=== PATIENT | female | born 1975 | race Caucasian/White ===

== ENCOUNTER 2017-01-23 19:06 | Emergency (ER) | payer OTHER ==
[~2017-01-23] VITALS: Ht 152.4 cm; Wt 99.5 kg
[~2017-01-23 19:06] MED LIST: HYD25 PO; IBUP-1542 PO
[2017-01-23 19:11] VITALS: Ht 152.4 cm; Wt 99.5 kg
[2017-01-23] MEDS ORDERED: ONDANSETRON 4 MG INJ IV STA (21:29)
[2017-01-23] MEDS ORDERED: HYDROmorphONE 1 MG/ML SYG IV STA (21:29)
[2017-01-23 22:14] LABS: POTASSIUM 3.3 mmol/L (3.5-5.1)
[2017-01-23 22:15] LABS: CALCIUM 9.4 mg/dl (8.4-10.2); CREATININE 0.78 mg/dl (0.44-1.00)
[2017-01-23 22:37] LABS: BASOPHIL # 0.1 10^3/ul (0.0-0.1); BASOPHILS % 0.4 % (0.0-2.0); EOSINOPHILS # 0.2 10^3/ul (0.0-0.5); EOSINOPHILS % 1.4 % (0.0-7.0); HEMATOCRIT 43.8 % (37.0-47.0); HEMOGLOBIN 14.8 g/dl (12.0-16.0); LYMPHOCYTES # 3.6 10^3/ul (0.8-2.9); LYMPHOCYTES % 25.4 % (15.0-51.0); MEAN CORPUSCULAR HEMOGLOBIN 28.8 pg (29.0-33.0); MEAN CORPUSCULAR HGB CONC 33.8 g/dl (32.0-37.0); MEAN CORPUSCULAR VOLUME 85.2 fl (82.0-101.0); MEAN PLATELET VOLUME 9.4 fl (7.4-10.4); MONOCYTE # 1.2 10^3/ul (0.3-0.9); MONOCYTES % 8.2 % (0.0-11.0); NEUTROPHILS % 64.1 % (39.0-77.0); PLATELET COUNT 408 10^3/UL (140-415); RED BLOOD COUNT 5.14 10^6/ul (4.20-5.40); WHITE BLOOD COUNT 14.3 10^3/ul (4.8-10.8)
[2017-01-23 22:57] LABS: ADD UMIC YES; UR ASCORBIC ACID 40 mg/dL (NEGATIVE); UR BACTERIA FEW /HPF (NONE SEEN); UR BILIRUBIN (Dip) NEGATIVE (NEGATIVE); UR BLOOD (Dip) NEGATIVE (NEGATIVE); UR CLARITY SLIGHTLY CLOUDY (CLEAR); UR COLOR YELLOW (YELLOW); UR GLUCOSE (Dip) NEGATIVE (NEGATIVE); UR KETONES (Dip) NEGATIVE (NEGATIVE); UR LEUKOCYTE ESTERASE (Dip) NEGATIVE Leu/ul (NEGATIVE); UR MUCUS FEW /HPF (NONE SEEN); UR NITRITE (Dip) NEGATIVE (NEGATIVE); UR RBC 8 /HPF (0-5); UR SPECIFIC GRAVITY (Dip) 1.029 (1.003-1.030); UR SQUAMOUS EPITHELIAL CELL FEW /HPF (FEW); UR TOTAL PROTEIN (Dip) 3+ mg/dl (NEGATIVE); UR UROBILINOGEN (Dip) 1+ mg/dL (NEGATIVE)
--- NOTE | 2017-01-23 23:22 | RADRPT ---
PROCEDURE: CT abdomen and pelvis without contrast. CLINICAL INDICATION: Right flank pain. TECHNIQUE: CT of the abdomen and pelvis without contrast was performed on a multidetector high-reso lution CT scanner. Coronal and sagittal reformatted images were obtained from the axial source image s. Images were reviewed on a high-resolution PACS workstation. The total exam CTDI equals 22.85 mGy and the total exam DLP equals 1279.59 mGy-cm. One or more of the following dose reduction techniques were used: - Automated exposure control. - Adjustment of the mA and/or kV according to patient size. - Use of iterative reconstruction technique. COMPARISON: None available. FINDINGS: Visualized lower thorax: The visualized lung bases are clear. The visualized heart is unremarkable. Hepatobiliary system and spleen: The liver is grossly unremarkable. There is no intra or extrahepat ic biliary ductal dilatation. The gallbladder is grossly unremarkable. The spleen is grossly unremar kable. The pancreas is grossly unremarkable. Adrenal glands and genitourinary system: The adrenal glands are grossly unremarkable. There is no n ephrolithiasis or hydronephrosis. The urinary bladder is grossly unremarkable. There is a 4.[address] posterior to the uterus and a 4.5 cm cyst that appears contiguous with the left adnexa. There is a 4.9 cm cyst, that appears to be contiguous with the right adnexa, in the right lower quadrant adj acent to the cecum. The uterus is otherwise grossly unremarkable. Gastrointestinal system: The stomach and small bowel are unremarkable. There is descending colonic diverticulosis without bowel wall thickening or evidence of obstruction. The appendix is not clearly identified. Peritoneum, vascular, and lymphatics: There is no free intraperitoneal air or free fluid. There is no mesenteric or retroperitoneal adenopathy. There are atherosclerotic changes of the aorta, which i s nonaneurysmal. Musculoskeletal system and soft tissues: There is moderate multilevel degenerative enthesopathy. Th ere are no concerning osseous lesions. IMPRESSION: 1. Bilateral adnexal cysts with the largest likely contiguous with the right adnexa in the right lo wer quadrant adjacent to the cecum measuring 4.9 cm. Pelvic ultrasound can be performed for further evaluation. 2. Descending colonic diverticulosis without evidence of diverticulitis. 3. Vascular calcifications consistent with atherosclerosis. RPTAT: HLBP .David Joyce MD, MD Date Time Electronically viewed and signed by .David Joyce MD, MD on 01/23/2017 23:21 .P/
[2017-01-24] MEDS ORDERED: HYDR-902 PO (00:16)
[2017-01-24] MEDS ORDERED: METH750T93 PO (00:16)
[2017-01-24] MEDS ORDERED: IBUP800T25 PO (00:16)
--- NOTE | 2017-01-24 00:19 | ERD ---
ER Documentation Chief Complaint Date/Time DATE: 01/24/17 TIME: 00:17 Chief Complaint R back pain since last night HPI This is a 42-year-old female who said when she is going to bed last night she gradually developed some right low back pain located at the right L5-S1 area that radiates to the top of her right buttocks. 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 She says the pain is sharp and rate is worse when she bends to her right side. She says it occasionally radiates around the right lower flank. No hematuria no dysuria no fever no nausea vomiting diarrhea ROS All systems reviewed and are negative except as per history of present illness. Medications Home Meds Active Scripts Ibuprofen* (Motrin*) 800 Mg Tab, 800 MG PO Q6H Y for PAIN AND OR ELEVATED TEMP, #30 TAB Prov:VIRGINIA GUDINO DO 01/24/17 Methocarbamol* (Robaxin*) 750 Mg Tablet, 750 MG PO TID, #20 TAB Prov:VIRGINIA GUDINO DO 01/24/17 Hydrocodone/Acetaminophen ([place] 10-325 Tablet) 1 Each Tablet, 1 TAB PO Q6H Y for PAIN, #20 TAB Prov:VIRGINIA GUDINO DO 01/24/17 Hydrochlorothiazide* (Hydrochlorothiazide*) 25 Mg Tab, 25 MG PO DAILY, #14 TAB Prov:EZE ARRIAGA DO 03/24/16 Ibuprofen* (Motrin*) 600 Mg Tab, 600 MG PO Q8, #30 TAB Prov:EZE ARRIAGA DO 03/24/16 Allergies Allergies: Coded Allergies: No Known Allergy (Unverified , 03/24/16) PMhx/Soc History of Surgery: Yes (/DETACHED RETINA REPAIR) Anesthesia Reaction: No Hx Neurological Disorder: No Hx Respiratory Disorders: No Hx Cardiac Disorders: No (HTN) Hx Psychiatric Problems: No Hx Miscellaneous Medical Probl: No Hx Alcohol Use: No Hx Substance Use: No Hx Tobacco Use: No Smoking Status: Never smoker FmHx Family History: No coronary disease Physical Exam Vitals Vital Signs Date Time Temp Pulse Resp B/P Pulse Ox O2 Delivery O2 Flow Rate FiO2 01/23/17 23:14 98.2 76 18 193/92 99 01/23/17 21:45 81 24 198/99 99 01/23/17 19:11 100.0 89 24 232/112 99 Physical Exam Const: Well-developed, well-nourished Head: Atraumatic, normocephalic Eyes: Normal Conjunctiva, PERRLA, EOMI, normal sclera, no nystagmus ENT: Normal External Ears, Nose and Mouth, moist mucus membranes. Neck: Full range of motion. No meningismus, no lymphadenopathy. Resp: Clear to auscultation bilaterally, no wheezing, rhonchi, rales Cardio: Regular rate and rhythm, no murmurs, S1 S2 present Abd: Soft, non tender x 4, non distended. Normal bowel sounds, no guarding or rebound, no pulsitile abdominal masses or bruits Skin: No petechiae or rashes, no ecchymosis , no maculopapular rash Back: Is reproducible tenderness to the right low back along the L5-S1 area with tenderness to the right upper buttocks. There is reproducible pain with twisting of the trunk and right rotation] Ext: No cyanosis, or edema, FROM x 4, normal inspection, neurovascularly intact x 4 Neur: Awake and alert, STR 5/5 x 4, sensation intact x 4, no focal findings, cerebellum intact Psych: Normal Mood and Affect Result Diagram: 01/23/17212901/23/172134 Results 24 hrs Laboratory Tests Test 01/23/17 21:13 01/23/17 21:30 01/23/17 21:35 Urine Color YELLOW Urine Clarity SLIGHTLY CLOUDY Urine pH 5.0 Urine Specific [place] 1.029 Urine Ketones NEGATIVEmg/dL Urine Nitrite NEGATIVEmg/dL Urine Bilirubin NEGATIVEmg/dL Urine Urobilinogen 1+mg/dL Urine Leukocyte Esterase NEGATIVELeu/ul Urine Microscopic RBC 8/HPF Urine Microscopic WBC 4/HPF Urine Squamous Epithelial Cells FEW/HPF Urine Calcium Oxalate Crystals MODERATE/HPF Urine Bacteria FEW/HPF Urine Mucus FEW/HPF Urine Hemoglobin NEGATIVEmg/dL Urine Glucose NEGATIVEmg/dL Urine Total Protein 3+mg/dl White Blood Count 14.310^3/ul Red Blood Count 5.1410^6/ul Hemoglobin 14.8g/dl Hematocrit 43.8% Mean Corpuscular Volume 85.2fl Mean Corpuscular Hemoglobin 28.8pg Mean Corpuscular Hemoglobin Concent 33.8g/dl Red Cell Distribution Width 14.0% Platelet Count 32490^3/UL Mean Platelet Volume 9.4fl Neutrophils % 64.1% Lymphocytes % 25.4% Monocytes % 8.2% Eosinophils % 1.4% Basophils % 0.4% Nucleated Red Blood Cells % 0.0/100WBC Neutrophils # (Manual) 9.210^3/ul Lymphocytes # 3.610^3/ul Monocytes # 1.210^3/ul Eosinophils # 0.210^3/ul Basophils # 0.110^3/ul Nucleated Red Blood Cells # 0.010^3/ul Sodium Level 140mmol/L Potassium Level 3.3mmol/L Chloride Level 105mmol/L Carbon Dioxide Level 24mmol/L Anion Gap 14 Blood Urea Nitrogen 18mg/dl Creatinine 0.78mg/dl Glucose Level 123mg/dl Calcium Level 9.4mg/dl Current Medications Medications (Trade) Dose Ordered Sig/Jaqueline Route PRN Reason Start Time Stop Time Status Last Admin Dose Admin Hydromorphone HCl (Dilaudid) 1 mg ONCE STAT IV 01/23/17 21:29 01/23/17 21:31 DC 01/23/17 21:43 Ondansetron HCl (Zofran Inj) 4 mg ONCE STAT IV 01/23/17 21:29 01/23/17 21:31 DC 01/23/17 21:41 Procedures/MDM PROCEDURE: CT abdomen and pelvis without contrast. CLINICAL INDICATION: Right flank pain. TECHNIQUE: CT of the abdomen and pelvis without contrast was performed on a multidetector high-resolution CT scanner. Coronal and sagittal reformatted images were obtained from the axial source images. Images were reviewed on a high-resolution PACS workstation. The total exam CTDI equals 22.85 mGy and the total exam DLP equals 1279.59 mGy-cm. One or more of the following dose reduction techniques were used: - Automated exposure control. - Adjustment of the mA and/or kV according to patient size. - Use of iterative reconstruction technique. COMPARISON: None available. FINDINGS: Visualized lower thorax: The visualized lung bases are clear. The visualized heart is unremarkable. Hepatobiliary system and spleen: The liver is grossly unremarkable. There is no intra or extrahepatic biliary ductal dilatation. The gallbladder is grossly unremarkable. The spleen is grossly unremarkable. The pancreas is grossly unremarkable. Adrenal glands and genitourinary system: The adrenal glands are grossly unremarkable. There is no nephrolithiasis or hydronephrosis. The urinary bladder is grossly unremarkable. There is a 4.[address] posterior to the uterus and a 4.5 cm cyst that appears contiguous with the left adnexa. There is a 4.9 cm cyst, that appears to be contiguous with the right adnexa, in the right lower quadrant adjacent to the cecum. The uterus is otherwise grossly unremarkable. Gastrointestinal system: The stomach and small bowel are unremarkable. There is descending colonic diverticulosis without bowel wall thickening or evidence of obstruction. The appendix is not clearly identified. Peritoneum, vascular, and lymphatics: There is no free intraperitoneal air or free fluid. There is no mesenteric or retroperitoneal adenopathy. There are atherosclerotic changes of the aorta, which is nonaneurysmal. Musculoskeletal system and soft tissues: There is moderate multilevel degenerative enthesopathy. There are no concerning osseous lesions. IMPRESSION: 1. Bilateral adnexal cysts with the largest likely contiguous with the right adnexa in the right lower quadrant adjacent to the cecum measuring 4.9 cm. Pelvic ultrasound can be performed for further evaluation. 2. Descending colonic diverticulosis without evidence of diverticulitis. 3. Vascular calcifications consistent with atherosclerosis. RPTAT: HLBP .David Joyce MD, MD Date Time Electronically viewed and signed by .David Joyce MD, MD on 01/23/2017 23:21 .P/ CC: VIRGINIA GUDINO Patient's pain is musculoskeletal origin with reproducible pain with movements and radiation to the right upper buttocks. The patient does have bilateral ovarian cysts I will have her follow-up with gynecology. She was given a copy of her CT scan. She does not appear to have any clinical correlation with ovarian torsion I do not think she needs a sonogram at this point. She has no pelvic pain or abdominal pain whatsoever. Departure Diagnosis: Primary Impression: Low back pain Chronicity: acute Back pain laterality: right Sciatica presence: without sciatica Qualified Code: M54.5 - Acute right-sided low back pain without sciatica Additional Impression: Ovarian cyst Laterality: bilateral Qualified Code: N83.201 - Cysts of both ovaries Condition: Stable Patient Instructions: Muscle Spasm, Self-Care for Low Back Pain, Ovarian Cyst VIRGINIA GUDINO DO Jan 24, 2017 00:19
[2017-01-24] MEDS ORDERED: HYDR-3671 PO (00:29)
[2017-01-24] MEDS ORDERED: CLON-379 PO (00:30)
[2017-01-24 00:36] VITALS: BP 199/11; PULSE 84; RESP 16; TEMP 98.9
== END 2017-01-24 00:37 | disposition home or self-care (01) ==
LOC: E/R 19:06
DX: M54.5 Low back pain (principal); N83.201 Unspecified ovarian cyst, right side; I10 Essential (primary) hypertension
CPT/HCPCS: 74176; 80048; 81001; 85025; 96374; 96375; J1170; J2405; Z7502; Z7610

== ENCOUNTER 2017-07-01 12:38 | Emergency (ER) | END 2017-07-01 21:12 | disposition home or self-care (01) ==